=== PATIENT | female | born 1945 | race Caucasian/White ===

== ENCOUNTER → 2017-03-01 | Outpatient (CLI) | payer OTHER ==
[~2017-03-01] MED LIST: ALPR-475 PO; AMLO2.5T PO; ASPI-496 PO; ATEN25TA PO; BENA40TA2 PO; CHOL5000 PO; CITA20TA5 PO; CYAN10002 INJ; FURO-93 PO; HYDR25TA6 PO; IPRA4AER IH; LEVO50TA5 PO; LEVO5TAB20 PO; MILK150C2 PO; MULT1CAP19 PO; POTA10TA11 PO; TIOT18CA INH; TRAZ50TA18 PO
== END | disposition home or self-care (01) ==
LOC: CFH 15:19
PROVIDERS: ATTEND Surgery
DX: E04.2 Nontoxic multinodular goiter (principal); D44.0 Neoplasm of uncertain behavior of thyroid gland
CPT/HCPCS: 76536

== ENCOUNTER → 2017-06-16 | Outpatient (CLI) | payer OTHER ==
[~2017-06-16] MED LIST changes: +FENTANYL PF 100 MCG/2ML ONE; +FLUMAZENIL 0.1 MG/1 ML, 5ML ONE; -LEVO5TAB20 PO; +LEVO5TAB29 PO; +MIDAZOLAM 1 MG/ML, 5ML ONE; +NALOXONE 1 MG/ML, 2ML ONE
== END | disposition home or self-care (01) ==
LOC: RAD 08:21
PROVIDERS: ATTEND Registered Nurse
DX: S13.170A Subluxation of C6/C7 cervical vertebrae, initial encounter (principal); S13.150A Subluxation of C4/C5 cervical vertebrae, initial encounter; M50.13 Cervical disc disorder with radiculopathy, cervicothoracic region; M43.13 Spondylolisthesis, cervicothoracic region; M48.02 Spinal stenosis, cervical region; M48.03 Spinal stenosis, cervicothoracic region; M25.78 Osteophyte, vertebrae; X58.XXXA Exposure to other specified factors, initial encounter; Y93.89 Activity, other specified; Y92.89 Other specified places as the place of occurrence of the external cause; Y99.8 Other external cause status
CPT/HCPCS: 72050; 72141; 99156; 99157; J2250; J3010; J2310

== ENCOUNTER → 2018-07-25 | Outpatient (CLI) | payer OTHER ==
[~2018-07-25] MED LIST changes: -AMLO2.5T PO; +AMLO2.5T3 PO; -BENA40TA2 PO; +BENA40TA3 PO; -CITA20TA5 PO; +CITA20TA6 PO; -FENTANYL PF 100 MCG/2ML ONE; -FLUMAZENIL 0.1 MG/1 ML, 5ML ONE; -MIDAZOLAM 1 MG/ML, 5ML ONE; -NALOXONE 1 MG/ML, 2ML ONE; +TRAZ-136 PO; -TRAZ50TA18 PO
== END | disposition home or self-care (01) ==
LOC: RAD 12:55
PROVIDERS: ATTEND Family Medicine
DX: J18.9 Pneumonia, unspecified organism (principal)
CPT/HCPCS: 71046

== ENCOUNTER → 2019-01-01 | Outpatient (CLI) | payer OTHER ==
[~2019-01-01] MED LIST changes: -AMLO2.5T3 PO; +AMLO2.5T5 PO; -TRAZ-136 PO; +TRAZ50TA66 PO
== END | disposition home or self-care (01) ==
LOC: LDOP 13:54
PROVIDERS: ATTEND Registered Nurse
DX: M51.36 Other intervertebral disc degeneration, lumbar region (principal); M48.56XA Collapsed vertebra, not elsewhere classified, lumbar region, initial encounter for fracture
CPT/HCPCS: 72100